=== PATIENT | female | born 1930 ===

== ENCOUNTER 2022-05-15 10:02 | Emergency (ER) | payer OTHER ==
[~2022-05-15] VITALS: Ht 154.9 cm; Wt 72.6 kg
[~2022-05-15 10:02] MED LIST: CEFADROXIL500 MG PO; NABUMETONE750 MG PO
[2022-05-15] MEDS ORDERED: ZESTRIL20 MG (10:35)
[2022-05-15] MEDS ORDERED: ASA81 MG (10:35)
== END 2022-05-15 14:12 | disposition home or self-care (01) ==
LOC: ER 10:02
DX: S00.03XA Contusion of scalp, initial encounter (principal); W01.0XXA Fall on same level from slipping, tripping and stumbling without subsequent striking against object, initial encounter; Y93.9 Activity, unspecified; Y92.019 Unspecified place in single-family (private) house as the place of occurrence of the external cause; S79.912A Unspecified injury of left hip, initial encounter; I10 Essential (primary) hypertension

== ENCOUNTER 2022-06-23 10:51 | Emergency (ER) | payer OTHER ==
[~2022-06-23] VITALS: Ht 154.9 cm; Wt 68.0 kg
[~2022-06-23 10:51] MED LIST changes: +ASA81 MG; +ZESTRIL20 MG
== END 2022-06-23 14:20 | disposition home or self-care (01) ==
LOC: ER 10:51
DX: S89.82XA Other specified injuries of left lower leg, initial encounter (principal); W01.0XXA Fall on same level from slipping, tripping and stumbling without subsequent striking against object, initial encounter; Y93.89 Activity, other specified; Y92.018 Other place in single-family (private) house as the place of occurrence of the external cause; S40.211A Abrasion of right shoulder, initial encounter